=== PATIENT | male | born 1950 ===

== ENCOUNTER 2020-12-29 14:36 | Outpatient (CLI) | payer OTHER | END 2020-12-29 15:00 | disposition home or self-care (01) | LOC: RAD 14:36 | PROVIDERS: ATTEND Orthopaedic Surgery | DX: M54.5 Low back pain (principal); M25.531 Pain in right wrist; M25.532 Pain in left wrist ==

== ENCOUNTER 2021-03-29 15:43 | Outpatient (CLI) | payer OTHER | END 2021-03-29 15:52 | disposition home or self-care (01) | LOC: RAD 15:43 | PROVIDERS: ATTEND Orthopaedic Surgery | DX: M17.0 Bilateral primary osteoarthritis of knee (principal); M21.162 Varus deformity, not elsewhere classified, left knee; R93.6 Abnormal findings on diagnostic imaging of limbs ==

== ENCOUNTER → 2022-07-21 | Outpatient (CLI) | payer OTHER | END | disposition home or self-care (01) | LOC: RAD 10:37 | PROVIDERS: ATTEND Orthopaedic Surgery | DX: M76.821 Posterior tibial tendinitis, right leg (principal); M25.572 Pain in left ankle and joints of left foot; M79.672 Pain in left foot; M21.41 Flat foot [pes planus] (acquired), right foot ==

== ENCOUNTER 2022-07-27 13:45 | Outpatient (CLI) | payer OTHER | END 2022-07-27 14:37 | disposition home or self-care (01) | LOC: MRI 13:45 | PROVIDERS: ATTEND Orthopaedic Surgery | DX: M76.821 Posterior tibial tendinitis, right leg (principal) | CPT/HCPCS: 73722 ==